=== PATIENT | male | born 1955 | race Caucasian/White ===

== ENCOUNTER 2017-03-21 21:12 | Emergency (ER) | payer BC, SELFPAY ==
[2017-03-21 21:21] VITALS: BP 129/89; PULSE 73; RESP 18; TEMP 36.6; O2SAT 95; BMI 26.4
--- NOTE | 2017-03-21 21:33 | XR_ITS ---
XR foot RT min 3V RIGHT FOOT 3 VIEWS Ordering Physician: Bassam Krishnan MD Patient Age: 61 years: Male HISTORY: ITS.REASON: DROPPED HAY FORKS ON FOOT Large tool on foot with bruising at great toe. Reports Has had previous second toe and ankle fracture TECHNIQUE: 3 views right foot COMPARISON :No previous studies FINDINGS . Fractures at lateral base great toe: most evident is the subtle transverse fracture at the proximal lateral corner here at the base of the distal phalanx. This extends towards the very lateral margin of the articular surface. Mild 1 mm distraction There is also questionable longitudinal hairline fracture extending from this corner fracture longitudinally through the lateral aspect base of distal phalanx great toe, which passes through the cortex at proximal lateral metaphysis of the great toe distal phalanx. This is not definitive but suspect, and is seen only on the frontal projection. Additional views may be required if desired to fully confirm this latter longitudinal fracture component but since it is nondisplaced. Would not appear tochange management. Otherwise notemild degenerative changes at DIP joint of the second toe. Mild degenerative changes at PIP joint of second and possibly third toe . Minimal plantar calcaneal spur and minimal spurring at insertion of Achilles tendon IMPRESSION========= Fractures at the medial base distal phalanx great toe: 1. Most evident is a subtle transverse fracture passing through the medial lateral corner distal phalanx,. This extends to the lateral margin articular surface.. 2. als questionable/suspect hairline nondisplaced fracture also seen extending distal to this and continuing longitudinal through the lateral base of distal phalanx great toe is seen only on the frontal projection.
--- NOTE | 2017-03-21 22:20 | HMH.EDGENADL ---
ED Disposition Clinical Impression: Fracture of distal phalanx of great toe Qualifiers: Encounter type: initial encounter Fracture type: closed Fracture alignment: nondisplaced Laterality: right Qualified Code(s): S92.424A - Nondisplaced fracture of distal phalanx of right great toe, initial encounter for closed fracture Disposition: Home, Self-Care Condition on Discharge: Good Instructions: DI for Toe Fracture, How to Use a Walking Boot, How to Robel Tape Additional Instructions: Ice and elevate foot for pain and swelling. Ibuprofen for pain. Robel taping and orthopedic boot until seen by streetsweeper operator. Referrals: Provider,Referral, [Primary Care Provider] - Althea Beyer DPM [Physician] - 3 days (call thursday to schedule appointment ) - Critical Care Critical Care Time: No Attestation: On 03/21/17, the high probability of a clinically significant, sudden or life threatening deterioration of the following system(s) required my full and direct attention, intervention and personal management. The time I documented below is in addition to time spent performing reported procedures but includes the following listed in this critical care notation. Medical Decision Making Vital Signs: 03/21/17 21:21 Temperature 97.8 F Temperature Source Oral Pulse Rate [Right Brachial] 73 Respiratory Rate 18 Blood Pressure [Right Radial Artery] 129/89 Blood Pressure Mean [Right Radial Artery] 102 Blood Pressure Source [Right Radial Artery] Automatic Cuff Blood Pressure Position [Right Radial Artery] Supine 02 Sat by Pulse Oximetry 95 Oxygen Delivery Method Room Air Orders (Tests/Meds): ORDERS Category Date Time Status Foot XR right minimum 3 views [XR foot RT min 3V] Stat Exams 03/21/17 21:33 Taken - Emanuel Inquiry Pt receiving controlled substance: No (Patient declines) General Adult HPI - General Chief complaint: PAIN Stated complaint: haylift on tractor smashed toes Mode of Arrival: Family Vehicle Limitations: No Limitations Description of Symptoms (Recalled from ER Triage Doc. by RN): C/O PAIN AND BRUISING TO RIGHT FOOT. DROPPED A SET OF HAY FORKS ON FOOT AT 1100. 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 He has bruising and pain predominantly in his great toe, to a lesser extent the second and third toes. He has been able to walk on it all day. He took ibuprofen prior to arrival which he says worked well. - Related Data Home Medications Medication Instructions Recorded Confirmed raNITIdine HCl [Ranitidine HCl] 150 mg PO BID 03/21/17 03/21/17 Allergies Allergy/AdvReac Type Severity Reaction Status Date / Time meperidine [From DEMEROL] Allergy Unknown Verified 03/21/17 21:31 [facility] History I have reviewed the patient's past medical history: Yes Medical History: Denies:: Cancer, Diabetes Mellitus Type 1, Diabetes Mellitus Type 2, MRSA Amputation: No Fractures: No - *Social History Smoking Status: Never smoker Alcohol Intake: never - Psychiatric History Expresses thoughts of harming self/others: None Suicide Plan Description: No Plan ROS Obtained: Yes Systems reviewed as appropriate & no additional complaints - Constitutional Constitutional: Denies fever(s) - Musculoskeletal Musculoskeletal: Reports as per HPI - Neurologic Neurologic: Denies numbness, Denies weakness Physical Exam - General General appearance: alert, in no apparent distress - Respiratory Respiratory exam: Absent: respiratory distress - Cardiovascular Cardiovascular exam: Present: regular rate - Neurological Exam Neurological exam: Present: alert - Other Other exam information: Purple and yellowish ecchymosis of right great toe, especially distal phalanx. Nail is intact without subungual hematoma
--- NOTE | 2017-03-21 22:24 | ED_ITS ---
ED Disposition Clinical Impression: Fracture of distal phalanx of great toe Qualifiers: Encounter type: initial encounter Fracture type: closed Fracture alignment: nondisplaced Laterality: right Qualified Code(s): S92.424A - Nondisplaced fracture of distal phalanx of right great toe, initial encounter for closed fracture Disposition: Home, Self-Care Condition on Discharge: Good Instructions: DI for Toe Fracture, How to Use a Walking Boot, How to Robel Tape Additional Instructions: Ice and elevate foot for pain and swelling. Ibuprofen for pain. Robel taping and orthopedic boot until seen by software technician. Referrals: Provider,Referral, [Primary Care Provider] - Althea Beyer DPM [Physician] - 3 days (call thursday to schedule appointment ) - Critical Care Critical Care Time: No Attestation: On 03/21/17, the high probability of a clinically significant, sudden or life threatening deterioration of the following system(s) required my full and direct attention, intervention and personal management. The time I documented below is in addition to time spent performing reported procedures but includes the following listed in this critical care notation. Medical Decision Making Vital Signs: 03/21/17 21:21 Temperature 97.8 F Temperature Source Oral Pulse Rate [Right Brachial] 73 Respiratory Rate 18 Blood Pressure [Right Radial Artery] 129/89 Blood Pressure Mean [Right Radial Artery] 102 Blood Pressure Source [Right Radial Artery] Automatic Cuff Blood Pressure Position [Right Radial Artery] Supine 02 Sat by Pulse Oximetry 95 Oxygen Delivery Method Room Air Orders (Tests/Meds): ORDERS Category Date Time Status Foot XR right minimum 3 views [XR foot RT min 3V] Stat Exams 03/21/17 21:33 Taken - Emanuel Inquiry Pt receiving controlled substance: No (Patient declines) General Adult HPI - General Chief complaint: PAIN Stated complaint: haylift on tractor smashed toes Mode of Arrival: Family Vehicle Limitations: No Limitations Description of Symptoms (Recalled from ER Triage Doc. by RN): C/O PAIN AND BRUISING TO RIGHT FOOT. DROPPED A SET OF HAY FORKS ON FOOT AT 1100. 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 He has bruising and pain predominantly in his great toe, to a lesser extent the second and third toes. He has been able to walk on it all day. He took ibuprofen prior to arrival which he says worked well. - Related Data Home Medications Medication Instructions Recorded Confirmed raNITIdine HCl [Ranitidine HCl] 150 mg PO BID 03/21/17 03/21/17 Allergies Allergy/AdvReac Type Severity Reaction Status Date / Time meperidine [From DEMEROL] Allergy Unknown Verified 03/21/17 21:31 [facility] History I have reviewed the patient's past medical history: Yes Medical History: Denies:: Cancer, Diabetes Mellitus Type 1, Diabetes Mellitus Type 2, MRSA Amputation: No Fractures: No - *Social History Smoking Status: Never smoker Alcohol Intake: never - Psychiatric History Expresses thoughts of harming self/others: None Suicide Plan Description: No Plan ROS Obtained: Yes Systems reviewed as appropriate & no addition
[2017-03-21 22:40] VITALS: BP 118/79; PULSE 74; RESP 16; TEMP 37; O2SAT 98
== END 2017-03-21 22:43 | disposition home or self-care (01) ==
PROVIDERS: Emergency Provider Emergency Medicine
DX: S92.424A Nondisplaced fracture of distal phalanx of right great toe, initial encounter for closed fracture (principal); W30.89XA Contact with other specified agricultural machinery, initial encounter; Y92.73 Farm field as the place of occurrence of the external cause; Z88.6 Allergy status to analgesic agent
CPT/HCPCS: 73630; 99282

== ENCOUNTER → 2017-12-15 10:01 | Outpatient (POV) | payer BC, SELFPAY | PROVIDERS: Visit Provider Dermatology | DX: Z00.00 Encounter for general adult medical examination without abnormal findings (principal) ==

== ENCOUNTER → 2018-01-15 14:50 | Outpatient (CLI) | payer BC, SELFPAY ==
--- NOTE | 2018-01-15 14:56 | MR_ITS ---
MR knee RT wo con HISTORY: Knee pain and swelling following injury ITS.REASON: ACUTE PAIN OF RIGHT KNEE, EFFUSION ORDERING PHYSICIAN: Avtar Dumas MD PATIENT AGE: 62 years Comparison: None TECHNIQUE: Standard multiplanar multiecho sequences are performed without contrast. FINDINGS: There is a ligamentous, collateral ligaments, patellar tendon, and quadriceps tendon are intact. The lateral meniscus has an unremarkable appearance. There is a complex tear involving the posterior horn of medial meniscus in its mid aspect posteriorly. The meniscus just central/lateral to this region as an abnormal appearance being larger than normal within abnormal orientation consistent with a flipped meniscus.. The anterior horn of the medial meniscus is extruded medially but does not appear torn. There is a moderate-sized knee joint effusion. There is slight increased T2 signal involving the posterior aspect of the lateral tibial plateau suggesting a bone contusion. There are osteoarthritic changes of the knee with decrease in the joint space medially and with osteophytes at the posterior patella. Patellar cartilage is preserved. There is a mild amount of pretibial edema IMPRESSION: 1. Complex tear involves the posterior horn of medial meniscus with a flipped meniscus centrally. 2. Moderate size knee joint effusion with osteoarthritis. 3. Small bone contusion of the posterior aspect of the lateral tibial plateau
== END ==
PROVIDERS: PCP Family Medicine; Visit Provider Family Medicine
DX: M25.561 Pain in right knee (principal); M25.461 Effusion, right knee; S83.206A Unspecified tear of unspecified meniscus, current injury, right knee, initial encounter
CPT/HCPCS: 73721

== ENCOUNTER 2018-03-11 14:00 | Outpatient (RCR) | payer BC, SELFPAY | END 2018-03-11 14:05 | disposition home or self-care (01) | LOC: PT 14:00 | DX: Z96.651 Presence of right artificial knee joint (principal) | CPT/HCPCS: 97010; 97014; 97016; 97035; 97110; 97163; G0283 ==

== ENCOUNTER → 2021-06-27 12:53 | Outpatient (CLI) | payer MEDICARE, BC, SELFPAY ==
--- NOTE | 2021-06-27 | ECG_ITS ---
APPROVED REPORT Exam: Resting ECG HR:52 bpm ECG Measurements Heart Rate 52 AXES PA 188 P 56 QRSd 156 QRS 44 QT 436 T 51 QTc 417 Conclusion SINUS BRADYCARDIA RIGHT BUNDLE BRANCH BLOCK [120+ ms QRS DURATION, UPRIGHT V1, 40+ ms S IN I/aVL/V4/V5/V6] ABNORMAL ECG UNCONFIRMED REPORT Electronically signed by : Wei Wu MD 06/28/2021 08:10:01
== END ==
PROVIDERS: PCP Internal Medicine Adolescent Medicine; Visit Provider Internal Medicine Adolescent Medicine
DX: R55 Syncope and collapse (principal); I10 Essential (primary) hypertension
CPT/HCPCS: 93005

== ENCOUNTER → 2021-07-10 06:43 | Outpatient (CLI) | payer MEDICARE, BC, SELFPAY ==
--- NOTE | 2021-07-10 06:44 | CA_ITS ---
APPROVED REPORT EXAM: Comprehensive 2D, Doppler, and color-flow Echocardiogram Filler Shredder Helper: Ale Zhang RT(R) Ht: 5 ft 11 in Wt: 209lbs BSA: 2.15 BP: 160/105 mmHg Indications: RBBB, dizziness, HTN. 2D Dimensions LVOT 2.12 cm (M/F) 1.5-2.5 LVEF (Albrecht's) 57.80 % M: 52 - 72 LV Volume 133.60 mL M: 62 - 150 LV Volume Index 62.13 mL/m2 M: 34 - 74 LA Volume 40.50 mL LA Volume Index 18.83 mL/m2 (M/F) 16-34 M-Mode Dimensions RVDd 3.82 cm (0.9-2.6) LA Diam 3.39 cm (1.9-4.0) LVDd 4.18 cm (3.5-5.7) Ao Diam 2.78 cm (2.0-3.7) LVDs 3.26 cm (3.5-5.7) IVSd 0.80 cm (0.6-1.1) PWd 0.84 cm (0.6-1.1) EF (Teich) 44.90% FS 22.00% EDV (Teich) 77.70 mL ESV (Teich) 42.80 mL LV Diastology E Decel Time 307.00 (160-240 msec) E/A Ratio 0.6 MED E' 5.30 (< 7 cm/sec) E'/MED E' Ratio 6.53 (>14) LAT E' 8.20 (<10 cm/sec) E/LAT E' Ratio 4.22 (>14) Mitral Valve MV E Max Macario. 35.00 (40-130 cm/s) MV A Velocity 63.00 (40-130 cm/s) E/A Ratio 0.55 MV Decel. Time 307.00 (160-240 ms) MV PHT 90.00 ms Tricuspid Valve TR P. Velocity 240.00 cm/s RAP Estimate 15.00 mmHg RVSP 38.10 mmHg Left Ventricle Left atrium is mildly enlarged, left ventricle is normal size, mild concentric left ventricular hypertrophy, estimated ejection fraction 55% with no regional wall motion abnormality, grade 1 diastolic dysfunction seen without tissue Doppler evidence of raise left atrial pressure. Right Ventricle Right atrium and right ventricle are mildly enlarged with normal contractility. Aortic Valve Aortic valve is minimally thickened and fibrosed there is no aortic stenosis or aortic insufficiency. Mitral Valve Mitral valve grossly normal, there is trace mitral regurgitation. Tricuspid Valve Tricuspid grossly normal, there is trace tricuspid regurgitation, calculated right ventricular systolic pressure 38 mmHg. Pulmonic Valve Pulmonic valve is poorly visualized. Great Vessels Aortic root is normal size. Inferior vena cava normal size with normal spectral collapse. Pericardium No significant pericardial effusion noted. Conclusion 1. Mild biatrial enlargement, normal left ventricular size, mild concentric left ventricular hypertrophy, estimated ejection fraction 55% with no regional wall motion abnormality, grade 1 diastolic dysfunction seen without tissue Doppler evidence of raise left atrial pressure. 2. Mildly enlarged right ventricle with normal contractility. 3. Trace mitral and tricuspid regurgitation, calculated right ventricular systolic pressure 38 mmHg. 4. No significant pericardial effusion noted. 5. Inferior vena cava normal size with normal inspiratory collapse. Electronically signed by : Daniel Ramirez MD 07/10/2021 19:09:58
--- NOTE | 2021-07-10 06:44 | CA_ITS ---
APPROVED REPORT Exam: Pharmacologic Technologist: Cassi Nassar, Ht: 5 ft 11 in Wt: 209 lbs BSA: 2.15 m2 HR: 65 bpm BP: 166/105 mmHg Rhythm: RBBB,NSR Indications: Right bundle branch block, Dizziness Medical History Cardiac Risk Factors: FHX of CAD Stress Test Details Test: LEXISCAN HR Resting HR: 64 bpm Max Heart Rate (APMHR): 155.174664 bpm Max HR Achieved: 98 bpm Target HR (85% APMHR): 131.004926 bpm % of APMHR: 63.23 Recovery HR: 73 bpm BP Resting BP: 166.0/105.0 mmHg Max BP: 168.0/98.0 mmHg Recovery BP: 154.0/96.0 mmHg ECG Resting ECG: NSR,RBBB Clinical Exercise duration: 04:00 min Highest Stage Achieved: Exercise capacity: 1.0 METs Stress ECG Conclusion DURING INFUSION OF LEXISCAN PATIENT HAD MILD SOA,STOMACH DISCOMFORT AND HEAD DISCOMFORT. NO ARRHYTHMIAS/ECTOPY. EXAGGERATION OF BASELINE ST-T ABNORMALITIES IN THE ANTERIOR LEADS. UNREMARKABLE LEXISCAN STRESS. MYOVIEW IMAGES REPORTED SEPARATELY Electronically signed by : Daniel Ramirez MD 07/10/2021 19:25:30
--- NOTE | 2021-07-10 06:44 | NM_ITS ---
APPROVED REPORT Exam: Nuclear Stress Test Indication: abn ecg Patient Location: Outpatient Stress Tech: Marleny Arana [place] Tech:Melisa Lynn BRENNONMichelle RT(R)(N) Ht: 5 ft 11 in Wt: 200 lbs HR: 65 bpm BP: 166/105 mmHg BSA: 2.11 m2 TID: 65 BMI: 27.8 History: abn ecg Procedure: Patient received a 0.4 mg of intravenous Lexiscan, resting heart rate 65 bpm, resting blood pressure 166/105 mmHg, with Lexiscan maximum heart rate achived was 91 bpm which is Less than 85 % of the maximum predicted heart rate and blood pressure was 168/98 mmHg. With Lexiscan, patient denied any complaint of chest pain. Electrocardiogram Resting electrocardiogram shows sinus rhythm, with Lexiscan there is less than 1.[address] segment depression noted from the baseline EKG. The EKG portion of the Lexiscan is nondiagnostic. Cardiac Stress and Resting SPECT Images: Cardiac Stress and Resting SPECT images were obtained using technetium 99m Myoview 29.3 mCi stress and 10.47 mCi at rest. Gated SPECT analysis of segmental wall motion and calculation of the ejection fraction also done. Prone images were also obtained. Cardiac stress and resting SPECT images show uniform myocardial activity without segmental perfusion abnormality, computer derived ejection fraction is 52% with no regional wall motion abnormality, right ventricle is normal size and contractility. Conclusion: 1. The EKG portion of the Lexiscan is nondiagnostic. 2. No scintigraphic evidence of reversible ischemia seen, computer derived ejection fraction 52% with no regional wall motion abnormality, right ventricle is normal size and contractility. 3. Normal Lexiscan Myoview study. Electronically signed by : Daniel Ramirez MD 07/12/2021 13:12:05
== END ==
PROVIDERS: PCP Internal Medicine Adolescent Medicine; Visit Provider Nurse Practitioner
DX: I45.10 Unspecified right bundle-branch block (principal); R42 Dizziness and giddiness; R94.31 Abnormal electrocardiogram [ECG] [EKG]
CPT/HCPCS: 78452; 93017; 93306; A9502; J2785

== ENCOUNTER → 2022-06-25 10:08 | Outpatient (CLI) | payer MEDICARE, BC, SELFPAY ==
[2022-06-25 10:39] LABS: Basophils % 0.7 % (0.1-2.0); Eosinophils % 0.9 % (0.1-12.0); Hematocrit 45.9 % (42.0-52.0); Hemoglobin 15.3 g/dL (14.1-18.0); Lymphocytes # 1.1 K/mm3 (0.7-4.5); Lymphocytes % 30.3 % (10-50); Mean Corpuscular HGB Conc 33.3 g/dL (31.8-35.4); Mean Corpuscular Hemoglobin 30.5 pg (27.0-31.2); Mean Corpuscular Volume 91.5 fl (80-94); Mean Platelet Volume 8.2 fl (7.4-10.4); Monocytes # 0.2 K/mm3 (0.1-1.0); Neutrophils # 2.3 K/mm3 (1.8-7.8); Neutrophils % 62.2 % (37.0-80.0); Platelet Count 252 K/mm3 (142-424); Red Blood Count 5.01 M/mm3 (4.60-6.20); Red Cell Distribution Width 13.8 % (11.5-17.5); White Blood Count 3.7 K/mm3 (4.8-10.8)
[2022-06-25 11:25] LABS: Chloride 103 mmol/L (98-107)
[2022-06-25 11:26] LABS: Potassium 4.3 mmoL/L (3.5-5.1); Sodium 139 mmol/L (136-145)
[2022-06-25 11:28] LABS: Alanine Aminotransferase 22 U/L (12-78); Aspartate Amino Transferase 26 U/L (17-59); Blood Urea Nitrogen 16 mg/dl (9-20); Estimated Glomerular Filt Rate 75 ml/min (>60); GFR (African American) 90 ML/MIN (>60)
[2022-06-25 11:29] LABS: Albumin Level 4.5 g/dl (3.5-5.0); Alkaline Phosphatase 59 U/L (38-126); Anion Gap 12.3 mEq/L (5-15); Calcium 9.5 mg/dl (8.4-10.2); Carbon Dioxide 28 mmol/L (22.0-30.0); Chol/HDL Ratio 4.9 (1-3.5); Cholesterol 227 mg/dl (140-200); Glucose 95 mg/dl (74-100); HDL Cholesterol 46 mg/dl (40-60); Total Protein,Serum 7.3 g/dl (6.3-8.2); Triglycerides 132 mg/dl (30-150); VLDL Cholesterol 26 mg/dL (0-40)
[2022-06-25 11:41] LABS: Direct LDL Cholesterol 131.22 mg/dL (100-129)
[2022-06-25 11:44] LABS: Free T4 (Free Thyroxine) 0.91 ng/dl (0.78-2.19)
== END ==
PROVIDERS: PCP Nurse Practitioner Family; Visit Provider Nurse Practitioner Family
DX: I11.9 Hypertensive heart disease without heart failure; I45.10 Unspecified right bundle-branch block; R94.31 Abnormal electrocardiogram [ECG] [EKG]; I63.9 Cerebral infarction, unspecified; R06.00 Dyspnea, unspecified
CPT/HCPCS: 36415; 80048; 80061; 80076; 84439; 85025

== ENCOUNTER 2022-09-10 13:40 | Emergency (ER) | payer MEDICARE, BC, SELFPAY ==
--- NOTE | 2022-09-10 13:42 | XR_ITS ---
PROCEDURE INFORMATION: Exam: XR Right Ankle Exam date and time: 09/10/2022 1:55 PM Age: 66 years old Clinical indication: Injury or trauma; Fall; Swelling (edema); Ankle and foot; Right; Additional info: Fall heard a pop, swelling on lateral foot/ankle , pain on lateral and medial TECHNIQUE: Imaging protocol: Radiologic exam of the right ankle. Views: 3 or more views. COMPARISON: 1. CR ANKCMRT XR ankle RT min 3V 01/02/2018 7:36 PM 2. CR [id number] XR foot RT min 3V 03/21/2017 9:49 PM 3. CR XR FOOT RT MIN 3V 09/10/2022 1:57 PM FINDINGS: Bones/joints: An undulating appearance of the tips of the medial and lateral malleoli have a similar appearance compared with 01/02/2018. An acute on chronic injury involving the lateral malleolus is difficult to exclude in this situation, particularly in the setting of significant soft tissue swelling. There is subcentimeter presumed bone fragment in the lateral soft tissues of the hindfoot, on the AP radiograph that was not present on the prior AP radiograph of the ankle and suggests a possible avulsion fracture (series 1/image 1). An avulsion fracture in this region would typically have been due to partial avulsion of the extensor digitorum brevis muscle. There are moderate dorsal and small plantar calcaneal enthesophytes. There is mild primary osteoarthritis of the talonavicular joint. Soft tissues: Severe soft tissue swelling involves the ankle/hindfoot. IMPRESSION: 1. Small avulsion fracture fragment in the lateral hindfoot suggesting a partial avulsion of the extensor digitorum brevis muscle. 2. Remote trauma involving the tips of the medial and lateral malleoli. In the setting of focal soft tissue swelling laterally, an acute on chronic fracture involving the tip of the lateral malleolus cannot be excluded.
--- NOTE | 2022-09-10 13:46 | XR_ITS ---
PROCEDURE INFORMATION: Exam: XR Right Foot Exam date and time: 09/10/2022 1:57 PM Age: 66 years old Clinical indication: Injury or trauma; Fall; Swelling (edema); Ankle and foot; Right; Additional info: Fall, heard a pop, swelling on lateral foot/ankle , pain on lateral and medial TECHNIQUE: Imaging protocol: Radiologic exam of the right foot. Views: 3 or more views. COMPARISON: 1. CR [id number] XR foot RT min 3V 03/21/2017 9:49 PM 2. CR XR ANKLE RT MIN 3V 09/10/2022 1:55 PM 3. CR ANKCMRT XR ankle RT min 3V 01/02/2018 7:36 PM FINDINGS: Bones/joints: A presumed bone fragment along the lateral aspect of the distal calcaneus is suspicious for an avulsion fracture, which likely is due to partial avulsion of the extensor digitorum brevis muscle (series 3/image 1). Multifocal mild osteoarthritis is present. See ankle radiographs regarding a possible acute on chronic injury involving the tip of the lateral malleolus. Soft tissues: Severe soft tissue swelling involves the ankle/hindfoot. IMPRESSION: 1. Small avulsion fracture involving the distal lateral aspect of the calcaneus, potentially representing partial avulsion of the extensor digitorum brevis muscle. 2. Please see the contemporaneously performed ankle radiograph report for additional findings.
[2022-09-10 13:50] VITALS: BP 120/93; PULSE 90; RESP 18; TEMP 36.7; O2SAT 98; BMI 29.6
--- NOTE | 2022-09-10 14:15 | EXP.UTC ---
Discharge Plan Disposition Patient Disposition: Home, Self-Care Condition: Good Prescriptions Prescriptions: No Action valsartan 80 mg tablet 80 mg PO DAILY Qty: 90 3RF Galzin 50 mg (zinc) capsule 50 mg PO DAILY ascorbate calcium (vitamin C) 500 mg tablet 500 mg PO DAILY aspirin 81 mg tablet,delayed release (DR/EC) 81 mg PO DAILY cholecalciferol (vitamin D3) 25 mcg (1,000 unit) capsule 25 mcg PO DAILY atorvastatin [Lipitor] 20 mg tablet 20 mg PO DAILY Qty: 30 3RF Referrals Follow up/Referrals: Margarito Márquez DO [Staff Physician] - See instructions (Call office for appointment) Caty Eddy APRN [Primary Care Provider] - See instructions Activity Restrictions/Add. Instructions Additional Instructions/Restrictions: No weight bearing *RICE, Rest the extremity, Ice 15-20 minutes 3-4 times daily, Compress- wear the meseret wrap as discussed as much as possible to help reduce swelling and pain, Elevate the extremity when at rest *Walking Boot is for support and help control swelling, Be sure that is not to tight but not to loose either *Elevate when resting? *Ibuprofen 600-800mg every 6-8 hours as needed for pain an inflammation. If need something more can take Tylenol in between doses of Ibuprofen to help Immediately follow up with your family doctor for new or worsening of symptoms, or no noticeable improvement over the next 3-5 days Clinical Impressions Clinical Impression: Ankle injury Qualifiers: Encounter type: initial encounter Laterality: right Qualified Code(s): S99.911A - Unspecified injury of right ankle, initial encounter Instructions Patient Instructions: How To Perform RICE (Rest, Ice, Compress, Elevate), Ibuprofen Discharge ED Provider: Danni Coff[place] [facility] [place] General Stated complaint: AO@home 09/10 RT ankle pain Mode of Arrival: Ambulatory Source of Information: Patient and Spouse Limitations: No Limitations Time Seen by Provider: 09/10/22 14:15 Description of Symptoms (Recalled from Triage Doc. by RN): PATIENT C/O INJURY TO RIGHT ANKLE AFTER FALLING YESTERDAY HEENT Symptoms (Recalled from RN notes): No Resp Symptoms (Recalled from RN notes): No Skin Symptoms (Recalled from RN notes): No MS Symptoms (Recalled from RN notes): Yes Functional Status (Recalled from RN notes): WNL History of Present Illness Provider Complaint: Patient states that he was clearing brush yesterday when he got tangled in a tree and fell and twisted his right ankle States that since then he has still been having pain in his ankle with swelling and bruising States that he has hurt this ankle before so today when it was still bothering him he came in Related Data Home Medications Medication Instructions Recorded Confirmed ascorbate calcium (vitamin C) 500 500 mg PO DAILY 07/02/21 06/25/22 mg tablet aspirin 81 mg tablet,delayed 81 mg PO DAILY 07/02/21 06/25/22 release zinc acetate 50 mg (zinc) capsule 50 mg PO DAILY 07/02/21 06/25/22 (Galzin) cholecalciferol (vitamin D3) 25 25 mcg PO DAILY 01/13/22 06/25/22 mcg (1,000 unit) capsule Previous Rx's Medication Instructions Recorded atorvastatin 20 mg tablet (Lipitor) 20 mg PO DAILY #30 tabs 06/25/22 valsartan 80 mg tablet 80 mg PO DAILY #90 tabs 06/25/22 Allergies Allergy/AdvReac Type Severity Reaction Status Date / Time meperidine [From DEMEROL] Allergy Unknown Verified 06/25/22 09:31 Worker's Comp Is this a Worker's Comp case?: No [facility] Disclaimer: The information contained in this section may have been updated after the patient was seen, as this information can be updated by other users. Medical History Abnormal electrocardiography Dizziness Right bundle branch block (RBBB) Social History Smoking Status: Never smoker alcohol intake: never current occupational status: other
[2022-09-10 15:07] VITALS: BP 120/93; PULSE 90; RESP 18; TEMP 36.7; O2SAT 98
== END 2022-09-10 15:30 | disposition home or self-care (01) ==
PROVIDERS: Emergency Provider Nurse Practitioner; PCP Nurse Practitioner Family
DX: S99.911A Unspecified injury of right ankle, initial encounter (principal); X50.1XXA Overexertion from prolonged static or awkward postures, initial encounter
CPT/HCPCS: 73610; 73630; 99204; 99212; G0463

== ENCOUNTER 2023-10-06 09:22 | Outpatient (CLI) | payer MEDICARE, BC, SELFPAY ==
--- NOTE | 2023-10-06 09:23 | CA_ITS ---
APPROVED REPORT EXAM: Comprehensive 2D, Doppler, and color-flow Echocardiogram Weaving Instructor: Arlyn Ba RVT Ht: 5 ft 11 in Wt: 187lbs BSA: 2.05 BP: 137/97 mmHg Indications: ABN EKG,HTN,HLD 2D Dimensions LA Volume 39.60 mL LA Volume Index 19.32 mL/m2 (M/F) 16-34 M-Mode Dimensions RVDd 3.13 cm (0.9-2.6) LA Diam 3.41 cm (1.9-4.0) LVDd 4.87 cm (3.5-5.7) LVDs 3.05 cm (3.5-5.7) IVSd 1.06 cm (0.6-1.1) PWd 0.85 cm (0.6-1.1) EF (Teich) 67.30% FS 37.40% EDV (Teich) 111.20 mL TAPSE 2.47 (<1.7) ESV (Teich) 36.40 mL LV Diastology E Decel Time 267 (160-240 msec) E/A Ratio 0.7 Aortic Valve TREVOR Index 1.21 cm2/m2 AoV Peak Macario. 130.0 (50-130 cm/s) AO Peak GR. 6.80 mmHg AO Mean GR. 4.00 (<5 mmHg) AO VTI 27.6 (18-25 cm) TREVOR (VTI) 2.55 (2.5-4.5 cm2) Mitral Valve MV E Max Macario. 44.0 (40-130 cm/s) MV A Velocity 63.0 (40-130 cm/s) E/A Ratio 0.69 MV PHT 78.0 ms Pulmonary Valve PV Peak Velocity 88.0 (50-150 cm/s) Tricuspid Valve TR P. Velocity 248.00 cm/s RAP Estimate 10.00 mmHg RVSP 34.60 mmHg Left Ventricle The left ventricle is normal size. The left ventricular systolic function is low normal. Proximal septal thickening is noted. The septum is asynchronous. No regional wall motion abnormalities are noted. Transmitral Doppler flow pattern suggests impaired LV relaxation. LVEF is 50%. Right Ventricle Right ventricle is mildly dilated. The right ventricular systolic function is normal. Atria The left atrium is mildly dilated. The right atrium is mildly dilated. There is no Doppler evidence of interatrial shunt. Aortic Valve The aortic valve is mildly thickened. The aortic valve is trileaflet. Trace aortic regurgitation. There is no aortic valvular stenosis. Mitral Valve The mitral valve leaflets are mildly thickened. Mild mitral regurgitation. No evidence of mitral valve stenosis. Tricuspid Valve The tricuspid valve leaflets are thin and pliable. Mild tricuspid regurgitation. RVSP is 20-25 mmHg. Pulmonic Valve The pulmonary valve is normal in structure. Trace pulmonic regurgitation. Great Vessels The aortic root is normal in size. The ascending aorta is mildly dilated, measuring 4.2 cm in diameter. IVC is normal in size and collapses >50% with inspiration. Pericardium There is no pericardial effusion. Other Information Study Quality: Fair Conclusion Low normal LV systolic function (LVEF 50%). Asynchronous septum. Mild RV dilation with normal RV function. Mild biatrial dilation. Mild MR, mild TR. Mildly dilated ascending aorta, measuring 4.2 cm in diameter. Electronically signed by : Vanessa Parks MD 10/06/2023 20:07:55
[2023-10-06 10:14] LABS: Basophils % 0.7 % (0.1-2.0); Eosinophils % 0.9 % (0.1-12.0); Hematocrit 41.5 % (42.0-52.0); Hemoglobin 14.1 g/dL (14.1-18.0); Lymphocytes # 0.9 K/mm3 (0.7-4.5); Lymphocytes % 30.6 % (10-50); Mean Corpuscular HGB Conc 33.9 g/dL (31.8-35.4); Mean Corpuscular Hemoglobin 31.1 pg (27.0-31.2); Mean Corpuscular Volume 91.7 fl (80-94); Mean Platelet Volume 8.2 fl (7.4-10.4); Monocytes # 0.2 K/mm3 (0.1-1.0); Monocytes % 6.2 % (1.7-9.3); Neutrophils # 1.8 K/mm3 (1.8-7.8); Neutrophils % 61.6 % (37.0-80.0); Platelet Count 258 K/mm3 (142-424); Red Blood Count 4.53 M/mm3 (4.60-6.20); Red Cell Distribution Width 14.2 % (11.5-17.5); White Blood Count 2.9 K/mm3 (4.8-10.8)
[2023-10-06 11:03] LABS: Alanine Aminotransferase 18 U/L (12-78); Albumin Level 4.1 g/dl (3.5-5.0); Alkaline Phosphatase 50 U/L (38-126); Anion Gap 9.9 mEq/L (5-15); Aspartate Amino Transferase 25 U/L (17-59); Bilirubin,Indirect 1.4 mg/dL (0.0-0.9); Bilirubin,Total 1.4 mg/dl (0.2-1.3); Bilirubin,Unconjugated 1.6 mg/dL (0.0-1.1); Blood Urea Nitrogen 21 mg/dl (9-20); Calcium 9.4 mg/dl (8.4-10.2); Carbon Dioxide 28 mmol/L (22.0-30.0); Chloride 105 mmol/L (98-107); Chol/HDL Ratio 4.3 (1-3.5); Cholesterol 206 mg/dl (140-200); Estimated Glomerular Filt Rate 84 ml/min (>60); GFR (African American) 102 ML/MIN (>60); Glucose 95 mg/dl (74-100); HDL Cholesterol 48 mg/dl (40-60); Magnesium 2.1 mg/dl (1.6-2.3); Potassium 3.9 mmoL/L (3.5-5.1); Sodium 139 mmol/L (136-145); Total Protein,Serum 6.9 g/dl (6.3-8.2); Triglycerides 74 mg/dl (30-150); VLDL Cholesterol 15 mg/dL (0-40)
[2023-10-06 11:14] LABS: Direct LDL Cholesterol 115.93 mg/dL (100-129)
[2023-10-06 11:20] LABS: Free T4 (Free Thyroxine) 0.92 ng/dl (0.78-2.19)
== END 2023-10-06 23:59 | disposition home or self-care (01) ==
LOC: RT 09:23
PROVIDERS: PCP Nurse Practitioner Family; Visit Provider Physician Assistant
DX: I51.7 Cardiomegaly (principal); I34.0 Nonrheumatic mitral (valve) insufficiency; R94.31 Abnormal electrocardiogram [ECG] [EKG]; E78.5 Hyperlipidemia, unspecified
CPT/HCPCS: 36415; 80048; 80061; 80076; 83735; 84439; 84443; 85025; 93306

== ENCOUNTER 2023-11-23 07:36 | Outpatient (CLI) | payer MEDICARE, BC, SELFPAY ==
[2023-11-23 08:08] LABS: Blood Urea Nitrogen 13 mg/dl (9-20); Estimated Glomerular Filt Rate 84 ml/min (>60); GFR (African American) 102 ML/MIN (>60)
--- NOTE | 2023-11-23 08:10 | CT_ITS ---
FINAL REPORT TECHNIQUE: Thin section axial CT with contrast with multiplanar reconstruction This study was performed with techniques to keep radiation doses as low as reasonably achievable, (ALARA). Individualized dose reduction techniques using automated exposure control or adjustment of mA and/or kV according to the patient''s size were employed. CLINICAL HISTORY: dilated ascending aorta, measuring 4.2 cm in diame FINDINGS: Pulmonary vessels enhance in normal fashion without evidence of embolism. The aortic sinus measures 45 mm. The mid ascending aorta measures 44 mm. Descending thoracic aorta measures 34 mm, proximally. There is no dissection. No pulmonary mass or infiltrate is present. There are numerous calcified pleural plaques which may be seen with infection or asbestos exposure. There is no significant pleural effusion. There is no significant pericardial effusion. No mediastinal or hilar adenopathy is present. Limited images of the upper abdomen demonstrate postsurgical changes from cholecystectomy. IMPRESSION: 1. 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 2. Extensive calcified pleural plaque disease. 3. Cholelithiasis. Reviewed, Interpreted and Dictated by Cristóbal Dennis MD Transcribed by Stephanie Scott Authenticated and [facility]
[2023-11-23] MEDS: 0.9 % SODIUM CHLORIDE 50 ML VIAL IV (08:31)
[2023-11-23] MEDS: SODIUM CHLORIDE 0.9% 10ML SYR (RAD ONLY) 10 ML IV (08:31)
[2023-11-23] MEDS: IOPAMIDOL-370 (76%);100ML BOTTLE 80 ML IV (08:31)
== END 2023-11-23 23:59 | disposition home or self-care (01) ==
PROVIDERS: PCP Nurse Practitioner Family; Visit Provider Physician Assistant
DX: I77.810 Thoracic aortic ectasia (principal)
CPT/HCPCS: 36415; 71275; 82565; 84520; Q9967

== ENCOUNTER 2023-12-28 09:55 | Outpatient (CLI) | payer MEDICARE, BC, SELFPAY ==
[2023-12-28 16:04] LABS: Microscopic, Urine URINE MICROSCOPIC (MICROSCOPIC)
[2023-12-28 16:58] LABS: Appearance,Urine CLEAR (Clear); Bilirubin,Urine Negative (Negative); Blood, Urine Negative (Negative); Color,Urine YELLOW (Yellow); Glucose,Urine (UA) Negative (Negative); Ketones,Urine Negative (Negative); Leukocyte Esterase,Urine Negative (Negative); Nitrate,Urine Negative (Negative); PH,Urine 6.5 (5.0-8.5); Protein,Urine Negative (Negative); Urobilinogen,Urine 0.2 EU/dl (0.2)
[2023-12-29 11:19] LABS: PSA, Free 0.55 ng/mL; Prostate Specific Ag 1.6 ng/mL (0.0-4.0)
== END 2023-12-28 23:59 | disposition home or self-care (01) ==
LOC: LAB 09:58
PROVIDERS: PCP Nurse Practitioner Family; Visit Provider Urology
DX: N40.0 Benign prostatic hyperplasia without lower urinary tract symptoms (principal); N48.6 Induration penis plastica
CPT/HCPCS: 36415; 81001; 84153; 84154

== ENCOUNTER 2024-05-04 10:14 | Outpatient (CLI) | payer MEDICARE, BC, SELFPAY ==
[2024-05-04 11:26] LABS: Albumin Level 4.3 g/dl (3.5-5.0)
[2024-05-04 11:29] LABS: Alanine Aminotransferase 19 U/L (12-78); Alkaline Phosphatase 53 U/L (38-126); Aspartate Amino Transferase 25 U/L (17-59); Bilirubin,Direct 0.2 mg/dl (0.0-0.4); Bilirubin,Indirect 1.4 mg/dL (0.0-0.9); Bilirubin,Total 1.6 mg/dl (0.2-1.3); Bilirubin,Unconjugated 1.4 mg/dL (0.0-1.1); Chol/HDL Ratio 3.8 (1-3.5); Cholesterol 185 mg/dl (140-200); HDL Cholesterol 49 mg/dl (40-60); Total Protein,Serum 6.6 g/dl (6.3-8.2); Triglycerides 77 mg/dl (30-150); VLDL Cholesterol 15 mg/dL (0-40)
[2024-05-04 11:40] LABS: Direct LDL Cholesterol 106.65 mg/dL (100-129)
== END 2024-05-04 23:59 | disposition home or self-care (01) ==
LOC: LAB 10:15
PROVIDERS: PCP Nurse Practitioner Family; Visit Provider Physician Assistant
DX: I77.810 Thoracic aortic ectasia (principal); E78.5 Hyperlipidemia, unspecified
CPT/HCPCS: 36415; 80061; 80076

== ENCOUNTER 2024-05-25 12:52 | Outpatient (CLI) | payer MEDICARE, BC, SELFPAY ==
--- NOTE | 2024-05-25 12:59 | CT_ITS ---
FINAL REPORT TECHNIQUE: Axial imaging of the chest is obtained after the administration of contrast. 3-D MIP reformatted images were also obtained and reviewed per PE protocol. CLINICAL HISTORY: Ascending aortic dilation, follow-up COMPARISON: 11/23/2023 FINDINGS: There is a stable ascending aortic aneurysm. The proximal ascending aorta measures 46 mm and was 46 mm at that same level on the previous exam. There is no aortic dissection. The pulmonary arteries are well filled. There is no evidence of pulmonary embolus. Heart size is normal. There is no mediastinal, hilar, or axillary lymphadenopathy. Bilateral pleural calcifications are noted. There is no suspicious pulmonary mass or nodule. There is no consolidation. There is no pleural or pericardial effusion. Limited evaluation of the upper abdomen demonstrates a cyst in the left lobe of the liver which is unchanged. There are multiple gallstones. No acute osseous abnormality. IMPRESSION: Stable ascending aortic aneurysm. No acute abnormality. Reviewed, Interpreted and Dictated by Lashon Blanton MD Transcribed by Stephanie Scott Authenticated and [facility]
[2024-05-25 13:18] LABS: Blood Urea Nitrogen 12 mg/dl (9-20); Estimated Glomerular Filt Rate 96 ml/min (>60); GFR (African American) 116 ML/MIN (>60)
[2024-05-25] MEDS: 0.9 % SODIUM CHLORIDE 50 ML VIAL IV (13:46)
[2024-05-25] MEDS: SODIUM CHLORIDE 0.9% 10ML SYR (RAD ONLY) 10 ML IV (13:46)
[2024-05-25] MEDS: IOPAMIDOL-370 (76%);100ML BOTTLE 80 ML IV (13:46)
== END 2024-05-25 23:59 | disposition home or self-care (01) ==
LOC: RAD 12:54
PROVIDERS: PCP Nurse Practitioner Family; Visit Provider Physician Assistant
DX: I77.810 Thoracic aortic ectasia (principal); E78.5 Hyperlipidemia, unspecified; I07.1 Rheumatic tricuspid insufficiency; I34.0 Nonrheumatic mitral (valve) insufficiency; I45.10 Unspecified right bundle-branch block; R94.31 Abnormal electrocardiogram [ECG] [EKG]
CPT/HCPCS: 36415; 71275; 82565; 84520; Q9967